=== PATIENT | female | born 1985 | race Caucasian/White ===

== ENCOUNTER 2016-10-04 17:25 | Emergency (ER) | payer MEDICAID ==
[2016-10-04 17:35] VITALS: BP 140/95
[2016-10-04] MEDS ORDERED: oxyCODONE HCL/ACETAMINOPHEN 1 TAB TABLET PO ONE (18:38)
[2016-10-04] MEDS ORDERED: oxyCODONE HCL/ACETAMINOPHEN 1 TAB TABLET ONE (18:44)
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
== END 2016-10-04 18:51 | disposition home or self-care (01) ==
LOC: ER 17:25
DX: S80.12XA Contusion of left lower leg, initial encounter (principal); X58.XXXA Exposure to other specified factors, initial encounter; Y93.89 Activity, other specified; Y92.89 Other specified places as the place of occurrence of the external cause